=== PATIENT | male | born 1975 | race Caucasian/White ===

== ENCOUNTER 2020-03-09 22:09 | Emergency (ER) | payer OTHER ==
[~2020-03-09] VITALS: Ht 180.3 cm; Wt 83.9 kg
[~2020-03-09 22:09] MED LIST: Amoxicillin500 MG PO; METCAR500; Percocet 5-3251 EACH PO; Prednisone20 MG PO; Zofran Odt8 MG SL
[2020-03-10] MEDS ORDERED: Norco 5-325 Ta1 EACH PO (01:06)
== END 2020-03-10 01:15 | disposition home or self-care (01) ==
LOC: ER 22:09
DX: S43.101A Unspecified dislocation of right acromioclavicular joint, initial encounter (principal); S43.421A Sprain of right rotator cuff capsule, initial encounter; I10 Essential (primary) hypertension; Y04.0XXA Assault by unarmed brawl or fight, initial encounter
CPT/HCPCS: 73030; 99283-25; A9270